=== PATIENT | female | born 1980 | race Hispanic/Latino ===

== ENCOUNTER → 2022-07-14 | Outpatient (CLI) | payer BC | END | disposition home or self-care (01) | LOC: RAH 14:35 | PROVIDERS: ATTEND Physical Medicine & Rehabilitation | DX: G95.9 Disease of spinal cord, unspecified (principal); R26.0 Ataxic gait | CPT/HCPCS: 70551 ==

== ENCOUNTER → 2022-08-06 | Outpatient (CLI) | payer BC | END | disposition home or self-care (01) | LOC: RAH 09:23 | PROVIDERS: ATTEND Internal Medicine | DX: E01.0 Iodine-deficiency related diffuse (endemic) goiter (principal) | CPT/HCPCS: 76536 ==

== ENCOUNTER → 2023-05-30 | Outpatient (CLI) | payer BC | END | disposition home or self-care (01) | LOC: RAH 15:20 | PROVIDERS: ATTEND Internal Medicine | DX: M54.16 Radiculopathy, lumbar region (principal) | CPT/HCPCS: 72148 ==

== ENCOUNTER → 2024-04-13 | Outpatient (CLI) | payer BC | END | disposition home or self-care (01) | LOC: RAH 13:54 | PROVIDERS: ATTEND Neurological Surgery | DX: M50.323 Other cervical disc degeneration at C6-C7 level (principal); M50.122 Cervical disc disorder at C5-C6 level with radiculopathy; R26.89 Other abnormalities of gait and mobility; M48.02 Spinal stenosis, cervical region | CPT/HCPCS: 72141 ==